=== PATIENT | female | born 1975 | race Caucasian/White ===

== ENCOUNTER 2017-04-03 15:51 | Observation (INO) ==
[2017-04-03 19:00] LABS: Basophils # 0.1 K/mcL (0.0-0.2); Basophils % 1.2 %; Eosinophils # 0.4 K/mcL (0.0-0.6); Hematocrit 42.4 % (35.3-44.9); Hemoglobin 13.5 g/dL (11.5-15.4); Immature Granulocytes % 1.4 % (0-4); Lymphocytes # 3.3 K/mcL (0.6-4.6); Lymphocytes % 27.4 %; Mean Corpuscular HGB Conc 31.8 g/dL (31.6-35.5); Mean Corpuscular Hemoglobin 26.8 pg (28.0-33.3); Mean Corpuscular Volume 84.3 fL (83.0-100.0); Mean Platelet Volume 10.1 fL (9.4-12.4); Monocytes # 0.7 K/mcL (0.0-1.3); Neutrophils # 7.4 K/mcL (1.6-8.9); Nucleated Red Blood Cells 0.2 /100 WBC (0); Platelet Count 332 K/mcL (140-400); Red Blood Count 5.03 M/mcL (3.82-4.97); Red Cell Distribution Width 13.1 % (11.5-14.5)
[2017-04-03 19:11] LABS: Ethanol < 10 mg/dL (0-10)
[2017-04-03 19:20] LABS: Alanine Aminotransferase 16 Units/L (7-52); Albumin 4.1 g/dL (3.5-5.7); Albumin/Globulin Ratio 1.5 (1.1-2.2); Alkaline Phosphatase 53 Units/L (34-104); Aspartate Amino Transferase 15 Units/L (13-39); BUN/Creatinine Ratio 18 (6-26); Bilirubin,Indirect 0.3 mg/dL (0.0-1.2); Bilirubin,Total 0.3 mg/dL (0.3-1.0); Blood Urea Nitrogen 13 mg/dL (6-20); Calcium 9.4 mg/dL (8.6-10.3); Carbon Dioxide 26 mEq/L (23-29); Chloride 100 mEq/L (98-107); Globulin 2.7 g/dL (2.4-3.5); Glucose 111 mg/dL (70-105); Osmolality,Calculated 285 (280-300); Sodium 137 mEq/L (136-145); Total Protein 6.8 g/dL (6.4-8.9); eGFR For Non-African Americans > 60 (> 60)
[2017-04-03 20:35] LABS: Amphetamine Screen,Urine Negative ng/mL (Cutoff=1000); Barbiturate Screen,Urine Negative ng/mL (Cutoff=200); Benzodiazepines Screen,Urine Negative ng/mL (Cutoff=200); Cannabinoid Screen,Urine Negative ng/mL (Cutoff = 50); Cocaine Screen,Urine Negative ng/mL (Cutoff= 300); Opiate Screen,Urine Negative ng/mL (Cutoff=300); Phencyclidine Screen,Urine Negative ng/mL (Cutoff=25)
[2017-04-03 20:38] LABS: Bilirubin,Urine Negative (Negative); Blood,Urine Negative (Negative); Clarity,Urine Clear (Clear); Color,Urine Yellow (Yellow); Glucose,Urine (UA) Normal (Normal); Ketones,Urine Negative (Negative); Leukocyte Esterase,Urine Negative (Negative); Nitrite,Urine Negative (Negative); Protein,Urine Negative (Neg-Trace); Specific Gravity,Urine 1.028 (1.010-1.025); Urobilinogen,Urine Normal (Normal)
[2017-04-03] MEDS ORDERED: *HR* HYDROcodone/Acet 5/325 mg TABLET PO ONE (21:12)
--- NOTE | 2017-04-03 21:15 | Emergency Department Note ---
Disposition Clinical Impression: Near syncope Hypertension Qualifiers: Hypertension type: essential hypertension Qualified Code(s): I10 - Essential ( primary) hypertension Disposition: Admitted As Inpatient Condition: Good Referrals: Krysten Olmos DO [Primary Care Provider] - Forms: ED Satisfaction Letter Time of Disposition: 22:05 General Adult HPI - General Chief complaint: ED Altered Mental Status Stated complaint: AMS Time Seen by Provider: 04/03/17 21:00 Source: patient, family Limitations: no limitations Nursing Notes Reviewed: Yes Vital Signs Reviewed: Yes - History of Present Illness HPI Narrative: 41-year-old female who comes in states she is not thinking straight has trouble initiating her speech last couple of days and getting her thoughts right. Also complains of a headache. She did have bedbug bites about a week ago was concerned that she may have picked up both infectious disease from them. She states over the last couple days she felt like she is going to pass out and caught herself with the mandaeism yesterday. Pt Subjective Complaint: Headache near syncope Onset (ago): day(s) (Several days) Location: head Radiation: non-radiation Pain Scale: 8 Quality: aching Consistency: intermittent Worsens with: nothing Associated symptoms: Reports: other (Near syncope) Treatments Prior to Arrival: none - Related Data Allergies Allergy/AdvReac Type Severity Reaction Status Date / Time No Known Allergies Allergy Verified 04/03/17 16:16 All systems ED: reviewed and negative except as stated. Constitutional: Denies: fever, chills, weakness, weight change Eyes: Denies: eye pain, eye discharge, vision change ENT ED: Denies: ear pain, throat pain, dental pain, hearing loss, epistaxis, congestion, dysphagia Cardiovascular: Denies: chest pain, palpitations, dyspnea on exertion, edema, syncope Respiratory: Denies: cough, dyspnea, wheezes, hemoptysis, stridor Gastrointestinal: Denies: abdominal pain, nausea, vomiting, diarrhea, constipation, hematemesis, melena, hematochezia Genitourinary: Denies: dysuria, frequency, hematuria, discharge Musculoskeletal: Denies: back pain, neck pain, arthralgia, myalgia Integumentary: Denies: rash, abrasion, lesions Neurological: Reports: headache. 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 - Social History Smoking Status: Never smoker Smokeless Tobacco Status: No Alcohol use: Reports: none Drug use: Reports: none Physical Exam - General Limitations: no limitations General appearance: alert, in no apparent distress - Head Head exam: atraumatic, normocephalic, normal inspection - Eye Eye exam: Present: normal appearance, PERRL, EOMI - ENT ENT exam: normal exam, normal oropharynx, mucous membranes moist - Neck Neck exam: Present: normal inspection, full ROM, trachea midline - Chest Chest inspection: Present: normal inspection, symmetric chest wall rise - Respiratory Respiratory exam: Present: normal lung sounds bilaterally - Cardiovascular Cardiovascular exam: Present: regular rate, normal rhythm, normal heart sounds - Abdominal Exam Abdominal exam: Present: soft, Non-Tender. Absent: tenderness, distention, guarding, rebound, rigidity - Extremities Exam Extremities exam: Present: normal inspection, full ROM. Absent: tenderness, pedal edema - Expanded Lower Extremity Exam Neurovascular/Tendon exam: Absent: motor deficit, sensory deficit, tendon deficit Gait: observed and normal - Back Exam Back exam: Present: normal inspection, full ROM. Absent: tenderness - Neurological Exam Neurological exam: Present: alert, oriented X3 - Psychiatric Psychiatric exam: Present: normal affect - Skin Skin exam: Present: warm, dry, intact, normal color Course - Reevaluation(s) Reevaluation #1: 41-year-old whose had symptoms of near-syncope felt like she is going to pass out says that does not seem that her brain is working right this been going on for 2-4 days. NIH stroke scale is 0 here. We will admit for evaluation. Time: 22:05 - Consultations Consultation #1: Discussed with Dr. Gerardo, admit Time: 22:11 Vital Signs Temperature 99.0 F 04/03/17 16:16 Pulse Rate 97 04/03/17 16:16 Respiratory Rate 16 04/03/17 16:16 Blood Pressure 179/112 04/03/17 16:16 O2 Sat by Pulse Oximetry 97 04/03/17 16:16 Temperature 99.0 F 04/03/17 16:16 Pulse Rate 89 04/03/17 21:11 Respiratory Rate 16 04/03/17 21:11 Blood Pressure 154/100 04/03/17 21:11 O2 Sat by Pulse Oximetry 100 04/03/17 21:11 Oxygen Delivery Oxygen Delivery Room Air Medical Decision Making - Lab Data Result diagrams: 04/03/17 18:19 04/03/17 18:19 Lab Results 04/03/17 04/03/17 04/03/17 Range/Units 18:19 18:19 18:19 WBC 12.1 H (4.3-11.1) K/mcL RBC 5.03 H (3.82-4.97) M/mcL Hgb 13.5 (11.5-15.4) g/dL Hct 42.4 (35.3-44.9) % MCV 84.3 (83.0-100.0) fL MCH 26.8 L (28.0-33.3) pg MCHC 31.8 (31.6-35.5) g/dL RDW 13.1 (11.5-14.5) % Plt Count 332 (140-400) K/mcL MPV 10.1 (9.4-12.4) fL Immature Gran % 1.4 (0-4) % Seg Neutrophils % 61.0 % Lymphocytes % 27.4 % Monocytes % 6.0 % Eosinophils % 3.0 % Basophils % 1.2 % Neutrophils # 7.4 (1.6-8.9) K/mcL Lymphocytes # 3.3 (0.6-4.6) K/mcL Monocytes # 0.7 (0.0-1.3) K/mcL Eosinophils # 0.4 (0.0-0.6) K/mcL Basophils # 0.1 (0.0-0.2) K/mcL Nucleated RBCs/100 WBC 0.2 H (0) /100 WBC Sodium 137 (136-145) mEq/L Potassium 4.0 (3.5-5.1) mEq/L Chloride 100 (98-107) mEq/L Carbon Dioxide 26 (23-29) mEq/L BUN 13 (6-20) mg/dL Creatinine 0.73 (0.60-1.20) mg/dL Est GFR ( Amer) > 60 (> 60) Est GFR (Non-Af Amer) > 60 (> 60) BUN/Creatinine Ratio 18 (6-26) Glucose 111 H (70-105) mg/dL Calculated Osmolality 285 (280-300) Calcium 9.4 (8.6-10.3) mg/dL Total Bilirubin 0.3 (0.3-1.0) mg/dL Direct Bilirubin 0.0 (0.0-0.2) mg/dL Indirect Bilirubin 0.3 (0.0-1.2) mg/dL AST 15 (13-39) Units/L ALT 16 (7-52) Units/L Alkaline Phosphatase 53 (34-104) Units/L Troponin I < 0.03 (< 0.04) ng/mL Serum Total Protein 6.8 (6.4-8.9) g/dL Albumin 4.1 (3.5-5.7) g/dL Globulin 2.7 (2.4-3.5) g/dL Albumin/Globulin Ratio 1.5 (1.1-2.2) Urine Color (Yellow) Urine Clarity (Clear) Urine pH (5.0-8.0) pH Units Ur Specific [place] (1.010-1.025) Urine Protein (Neg-Trace) mg/dL Urine Glucose (UA) (Normal) mg/dL Urine Ketones (Negative) mg/dL Urine Blood (Negative) Urine Nitrite (Negative) Urine Bilirubin (Negative) Urine Urobilinogen (Normal) mg/dL Ur Leukocyte Esterase (Negative) Ur Culture Indicated? (NO) Urine Opiates Screen (Ucvgdg=839) ng/mL Ur Barbiturates Screen (Kzeyqu=824) ng/mL Ur Phencyclidine Scrn (Cutoff=25) ng/mL Ur Amphetamines Screen (Uebcoh=4661) ng/mL U Benzodiazepines Scrn (Ktrmch=500) ng/mL Urine Cocaine Screen (Cutoff= 300) ng/mL U Marijuana (THC) Screen (Cutoff = 50) ng/mL Ethyl Alcohol < 10 (0-10) mg/dL 04/03/17 04/03/17 Range/Units 20:03 20:03 WBC (4.3-11.1) K/mcL RBC (3.82-4.97) M/mcL Hgb (11.5-15.4) g/dL Hct (35.3-44.9) % MCV (83.0-100.0) fL MCH (28.0-33.3) pg MCHC (31.6-35.5) g/dL RDW (11.5-14.5) % Plt Count (140-400) K/mcL MPV (9.4-12.4) fL Immature Gran % (0-4) % Seg Neutrophils % % Lymphocytes % % Monocytes % % Eosinophils % % Basophils % % Neutrophils # (1.6-8.9) K/mcL Lymphocytes # (0.6-4.6) K/mcL Monocytes # (0.0-1.3) K/mcL Eosinophils # (0.0-0.6) K/mcL Basophils # (0.0-0.2) K/mcL Nucleated RBCs/100 WBC (0) /100 WBC Sodium (136-145) mEq/L Potassium (3.5-5.1) mEq/L Chloride (98-107) mEq/L Carbon Dioxide (23-29) mEq/L BUN (6-20) mg/dL Creatinine (0.60-1.20) mg/dL Est GFR ( Amer) (> 60) Est GFR (Non-Af Amer) (> 60) BUN/Creatinine Ratio (6-26) Glucose (70-105) mg/dL Calculated Osmolality (280-300) Calcium (8.6-10.3) mg/dL Total Bilirubin (0.3-1.0) mg/dL Direct Bilirubin (0.0-0.2) mg/dL Indirect Bilirubin (0.0-1.2) mg/dL AST (13-39) Units/L ALT (7-52) Units/L Alkaline Phosphatase (34-104) Units/L Troponin I (< 0.04) ng/mL Serum Total Protein (6.4-8.9) g/dL Albumin (3.5-5.7) g/dL Globulin (2.4-3.5) g/dL Albumin/Globulin Ratio (1.1-2.2) Urine Color Yellow (Yellow) Urine Clarity Clear (Clear) Urine pH 6.0 (5.0-8.0) pH Units Ur Specific [place] 1.028 H (1.010-1.025) Urine Protein Negative (Neg-Trace) mg/dL Urine Glucose (UA) Normal (Normal) mg/dL Urine Ketones Negative (Negative) mg/dL Urine Blood Negative (Negative) Urine Nitrite Negative (Negative) Urine Bilirubin Negative (Negative) Urine Urobilinogen Normal (Normal) mg/dL Ur Leukocyte Esterase Negative (Negative) Ur Culture Indicated? NO (NO) Urine Opiates Screen Negative (Iczaqx=563) ng/mL Ur Barbiturates Screen Negative (Lbjuya=437) ng/mL Ur Phencyclidine Scrn Negative (Cutoff=25) ng/mL Ur Amphetamines Screen Negative (Bipdfy=9830) ng/mL U Benzodiazepines Scrn Negative (Kmjgrs=428) ng/mL Urine Cocaine Screen Negative (Cutoff= 300) ng/mL U Marijuana (THC) Screen Negative (Cutoff = 50) ng/mL Ethyl Alcohol (0-10) mg/dL NIH Stroke Scale - Level of Consciousness LOC: Alert - LOC Questions LOC Questions: Answers both correctly - LOC Commands LOC Commands: Performs both correctly - Best Gaze Best Gaze: Normal - Visual Visual: No visual loss - Facial Palsy Facial Palsy: Normal - Motor Arms Motor Arm-Left: No drift for 10 seconds Motor Arm-Right: No drift for 10 seconds - Motor Legs Motor Leg-Left: No drift for 5 seconds Motor Leg-Right: No drift for 5 seconds - Limb Ataxia Limb Ataxia: Normal, No Ataxia - Sensory Sensory: Normal - Best Language Best Language: No aphasia - Dysarthria Dysarthria: Normal - Extinction and Inattention Extinction and Inattention: Normal - NIHSS Total Score NIHSS Total Score: 0
[2017-04-04] MEDS ORDERED: Naloxone 0.4 MG/ML INJ IVP PRN (07:37)
[2017-04-04] MEDS ORDERED: Acetaminophen 325 MG TABLET PO PRN (07:37)
--- NOTE | 2017-04-04 08:19 | Internal Med History&Physical ---
Date of Encounter: 04/04/17 Time of Encounter: 08:09 Assessment and Plan (1) Near syncope Current visit: Yes Status: Acute Possible etiologies include hypertensive encephalopathy, complicated migraine, viral infection, other. CVA/TIA rule out since patient is having dysarthria and vision changes. - Will obtain 12 lead EKG - MRI since patient is having dysarthria with some vision complaints. - D-dimer to rule out VTE as patient is on OCP Sprintec. - Continue to monitor vital signs, obtain orthostatic vital signs. - Will consider Neurology consult if no improvement or etiology still unclear despite workup. (2) Leukocytosis Current visit: Yes Status: Acute Borderline elevated at 12,000. Possibly related to viral infection since patient does also complain of headache, fatigue, malaise. However, it is only borderline elevated. Since she is having fatigue and headache, will check flu swab. She is afebrile, no sick contacts at home. Qualifiers: Leukocytosis type: unspecified Qualified Code(s): D72.829 - Elevated white blood cell count, unspecified (3) Hypertension Current visit: Yes Status: Acute Resume atenolol. Monitor vital signs and check orthostatic vital signs. Qualifiers: Hypertension type: essential hypertension Qualified Code(s): I10 - Essential (primary) hypertension (4) Headache Current visit: Yes Status: Acute Qualifiers: Headache type: unspecified Headache chronicity pattern: unspecified pattern Intractability: not intractable Qualified Code(s): R51 - Headache (5) DVT prophylaxis Current visit: Yes Status: Acute lovenpx 40 mg sq Internal Medicine - H&P: HPI History of present illness: Ms. Hammer is a 41 year old female with history of hypertension presented for one week history of presyncopal episodes with fatigue, difficulty with speech, dizziness. Also complained of headache that lasts several hours at a time. She reports no gross vision changes but states that it is hard for her to look at cell phone screens. She denies phonophobia, nucal rigidity. She denies history of migraines. BP at home was elevated at 150/80s, she takes atenolol for hypertension as prescribed. She takes Sprintec and denies any leg swelling or tenderness. She denies palpitations, chest pain, SOB, n/v, change in gait, fevers/chills, diaphoresis, recent trauma, alcohol use, smoking, family history of sudden cardiac . Never happened in past. No EKG done but telemetry reviewed and showed sinus rhythm. CT head showed no acute process. Chest x-ray negative. BP on admission elevated 179/112 Urine drug screen negative, etoh negative. CMP/CBC unremarkable outside of leukocytosis borderline elevated. Past Med Surg Social Fam HX - Past Medical History Medical history: no medical history Psychiatric history: anxiety, depression - Social History Smoking Status: Never smoker Smokeless Tobacco Status: No Alcohol use: none Drug use: none - Family History Father Hx Family Endocrine Disorder: Yes (Diabetes) Internal Medicine - H&P: Meds Atenolol [Tenormin] 50 mg PO DAILY 04/03/17 [History] FLUoxetine HCl [Fluoxetine HCl] 40 mg PO DAILY 04/03/17 [History] Loratadine [Claritin] 10 mg PO DAILY 04/03/17 [History] Norgestimate-Ethinyl Estradiol [Sprintec 28 Day Tablet] 1 each PO DAILY [History] Triamcinolone Acet 0.1% OINT [Kenalog] 1 appl TP BID 04/03/17 [History] 3 Allergy/AdvReac Type Severity Reaction Status Date / Time No Known Allergies Allergy Verified 04/03/17 16:16 All Systems PM: A 10-system review of systems was performed and is negative for pertinent findings except as documented above in the HPI. - Constitutional Constitutional: fatigue, malaise, no chills, no fever(s), no night sweats, no weakness - EENT Eyes: no change in vision, no discharge, no pain, no seeing flashes, no spots in vision Ears: no ear discharge, no ear pain, no tinnitus Additional comments: No phonophobia Nose, mouth and throat: no dysphagia, no epistaxis, no nasal discharge, no neck pain, no sore throat - Cardiovascular Cardiovascular ROS IM: lightheadedness, no chest pain, no diaphoresis, no dyspnea, no palpitations, no syncope - Respiratory Respiratory: no cough, no dyspnea, no dyspnea on exertion, no wheezing, no excessive phlegm production - Gastrointestinal Gastrointestinal: no abdominal pain, no diarrhea, no hematemesis, no hematochezia, no melena, no nausea, no vomiting - Genitourinary Genitourinary: no change in urinary stream, no dysuria, no flank pain, no hematuria - Musculoskeletal Musculoskeletal ROS IM: no arthralgias, no numbness, no tingling - Integumentary Integumentary IM: no rash, no unusual bruising - Neurological Neurological ROS: abnormal speech, dizziness, no abnormal gait, no abnormal hearing, no confusion, no convulsions, no focal weakness, no loss of vision, no numbness, no tingling, no tremor(s) - Endocrine Endocrine IM: fatigue, no excessive sweating - Hematologic/Lymphatic Hematologic/Lymphatic: no easy bruising - Constitutional Vitals: Temp Pulse Resp BP Pulse Ox 98.4 F 84 14 133/84 94 04/04/17 07:31 04/04/17 07:31 04/04/17 07:31 04/04/17 07:31 04/04/17 07:31 - Head Head exam: Present: atraumatic, normocephalic - Eye Eye exam: Present: PERRL, conjuntiva pink, sclera anicteric Pupils: Present: PERRL - Neck Neck exam general surgery: Present: supple, trachea midline. Absent: lymphadenopathy - Respiratory Respiratory exam: Present: CTAB. Absent: accessory muscle use, rales, rhonchi, wheezes - Cardiovascular Cardiovascular exam: Present: RRR, +S1, +S2. Absent: diastolic murmur, gallop, rubs, systolic murmur - GI/Abdominal GI/Abdominal exam: Present: normal bowel sounds, soft, no peritoneal signs. Absent: distended, tenderness - Extremities Exam Extremities exam: Present: warm, radial pulses palpable and symmetrical. Absent : calf tenderness, cyanotic, pedal edema - Neurological Exam Neurological exam: Present: CN II-XII intact, oriented X3, no focal deficits. Absent: pronater drift, facial droop, speech deficit - Skin Skin exam: Present: dry, intact Internal Med - H&P Results - Labs CBC & Chem 7: 04/03/17 18:19 04/03/17 18:19
[2017-04-04 09:09] LABS: Chol/HDL Ratio 5.6 (0-4.9)
[2017-04-04] MEDS: FLUoxetine 20 MG CAPSULE PO SCH (11:18)
[2017-04-04] MEDS: Loratadine 10 MG TABLET PO SCH (11:20)
[2017-04-04] MEDS ORDERED: Prochlorperazine 10 MG/2 ML VIAL IVP STA (19:01)
[2017-04-04] MEDS ORDERED: Prochlorperazine 10 MG/2 ML VIAL IVP PRN ×2 (19:01→19:02)
--- NOTE | 2017-04-04 20:23 | Electrocardiograph Report ---
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
[2017-04-05] MEDS ORDERED: *HR* Enoxaparin 40 MG/0.4 ML SYRINGE SQ SCH (06:00)
[2017-04-05 07:37] LABS: Basophils # 0.1 K/mcL (0.0-0.2); Basophils % 0.7 %; Eosinophils # 0.1 K/mcL (0.0-0.6); Eosinophils % 0.9 %; Hematocrit 42.6 % (35.3-44.9); Hemoglobin 13.5 g/dL (11.5-15.4); Immature Granulocytes % 0.8 % (0-4); Lymphocytes # 2.2 K/mcL (0.6-4.6); Lymphocytes % 18.1 %; Mean Corpuscular HGB Conc 31.7 g/dL (31.6-35.5); Mean Corpuscular Hemoglobin 26.8 pg (28.0-33.3); Mean Corpuscular Volume 84.7 fL (83.0-100.0); Mean Platelet Volume 10.1 fL (9.4-12.4); Monocytes # 0.6 K/mcL (0.0-1.3); Monocytes % 4.6 %; Neutrophils # 8.9 K/mcL (1.6-8.9); Platelet Count 325 K/mcL (140-400); Red Blood Count 5.03 M/mcL (3.82-4.97); Red Cell Distribution Width 12.8 % (11.5-14.5); Segmented Neutrophils % 74.9 %
--- NOTE | 2017-04-05 07:52 | Internal Med Progress Note ---
Date of Encounter: 04/05/17 Time of Encounter: 07:44 - Assessment and plan (1) Near syncope Current Visit: Yes Status: Acute Assessment and plan: Possible etiologies include: complicated migraine, anxiety, hypertensive with BP ranging 118-187 / 71-127. CVA/TIA less likely, but she did complain of dysarthria and questionable vision changes. - Compazine 10 mg worked for headache but caused too much sedation. Will give 5 mg prn. - MRI normal - D-dimer within normal limits - EKG normal - Orthostatic VS normal Plan: - EEG this AM - Neurology consulted, recommendations appreciated. (2) Leukocytosis Current Visit: Yes Status: Acute Assessment and plan: Patient states this is chronic for her. Qualifiers: Leukocytosis type: unspecified Qualified Code(s): D72.829 - Elevated white blood cell count, unspecified (3) Hypertension Current Visit: Yes Status: Acute Assessment and plan: Will increase atenolol to 100 mg dose for today. I will monitor and see if she needs to keep 50 mg daily or 100 mg daily upon discharge. Qualifiers: Hypertension type: essential hypertension Qualified Code(s): I10 - Essential (primary) hypertension (4) Headache Current Visit: Yes Status: Acute Assessment and plan: Resolved with Compazine 10 mg but too sedated Likely migraine Neurology consulted, appreciate recs Qualifiers: Headache type: unspecified Headache chronicity pattern: unspecified pattern Intractability: not intractable Qualified Code(s): R51 - Headache (5) DVT prophylaxis Current Visit: Yes Status: Acute - Constitutional Vitals: Temp Pulse Resp BP Pulse Ox 98.4 F 114 18 158/105 94 04/05/17 07:24 04/05/17 07:24 04/05/17 07:24 04/05/17 07:24 04/05/17 07:24 - Head Head exam: Present: atraumatic, normocephalic - Eye Eye exam: Present: PERRL, conjuntiva pink, sclera anicteric Pupils: Present: PERRL - Neck Neck exam general surgery: Present: supple, trachea midline. Absent: lymphadenopathy - Respiratory Respiratory exam: Present: CTAB. Absent: accessory muscle use, rales, rhonchi, wheezes - Cardiovascular Cardiovascular exam: Present: RRR, +S1, +S2. Absent: diastolic murmur, gallop, rubs, systolic murmur - GI/Abdominal GI/Abdominal exam: Present: normal bowel sounds, soft, no peritoneal signs. Absent: distended, tenderness - Extremities Exam Extremities exam: Present: warm, radial pulses palpable and symmetrical. Absent : calf tenderness, cyanotic, pedal edema - Neurological Exam Neurological exam: Present: CN II-XII intact, oriented X3, no focal deficits. Absent: pronater drift, facial droop, speech deficit - Skin Skin exam: Present: dry, intact Internal Medicine: Result - Labs CBC & Chem 7: 04/05/17 07:03 04/03/17 18:19 Labs: Short CBC 04/05/17 Range/Units 07:03 WBC 11.9 H (4.3-11.1) K/mcL Hgb 13.5 (11.5-15.4) g/dL Hct 42.6 (35.3-44.9) % Plt Count 325 (140-400) K/mcL Neutrophils # 8.9 (1.6-8.9) K/mcL - ABG Interpretation ABG results: PT/INR, D-dimer D-Dimer 360 ng/mLFEU (0-500) 04/04/17 08:33 - Impressions Impressions Brain MRI 04/04/17 08:06 IMPRESSION: No evidence of acute intracranial abnormality or acute ischemia. Left maxillary sinus polyp versus mucous retention cyst. Mild mucosal thickening within the paranasal sinuses. D/ / 04/04/2017 12:07:56 Noah Garcia MD / clarice Interpreting Provider: Noah Garcia MD Consult Discharge Plan - Plan Referrals: Krysten Olmos DO [Primary Care Provider] -
[2017-04-05] MEDS ORDERED: Prochlorperazine 10 MG/2 ML VIAL IVP PRN (07:54)
[2017-04-05] MEDS: Loratadine 10 MG TABLET PO SCH (09:10)
[2017-04-05] MEDS: FLUoxetine 20 MG CAPSULE PO SCH (10:24)
--- NOTE | 2017-04-05 10:46 | Neurology - Consult Note ---
Date of Encounter: 04/05/17 Time of Encounter: 09:30 Assessment and Plan (1) Headache Current Visit: Yes Status: Acute 41-year-old female with history of headaches presented with headache, difficulty with word finding, thought process and mild slurred speech. No previous documented history of migraines. Symptoms persisted for 24 hours resolved with Compazine. Patient feels back to her normal self, neurologic exam was without any significant findings. Her symptoms may be associated with migraine-type headaches. Imaging studies including MRI of the brain were without significant findings. - At this time there is no need for further inpatient evaluation from neurology , would recommend follow-up with neurology for reevaluation the next 2-3 weeks in the outpatient setting. Qualifiers: Headache type: unspecified Headache chronicity pattern: unspecified pattern Intractability: not intractable Qualified Code(s): R51 - Headache History of Present Illness HPI: Ms. Hammer is a 41 year old female significant medical history of obesity, hypertension, depression presented to the emergency department on Monday with slurred speech, difficulty with thought process. She states that she started having headache on Monday while at work, difficulty with thoughts could not put words together and had difficulty with speech which was concerning to her. She presents to the emergency department for further evaluation. She denies any blurry vision, double vision, numbness tingling or weakness in any of her extremities, difficulty with walking, chest pain, palpitations, shortness of breath, abdominal pains, nausea vomiting diarrhea constipation. Of note she recently stayed in a hotel was bitten by bedbugs for which she had a bad allergic reaction and was put on prednisone and topical steroid cream with improvement in her bites which was one week prior to the onset of this event. She denies any previous events similar to her presenting symptoms. She does have a history of headaches which are usually treated with [id number] medications. She denies any significant family history of strokes, seizures, migraines. She denies traumatic events, change in medications other than the prednisone and topical steroid, does not use drugs, alcohol or smoker. Her symptoms continued until Monday at which time she was given Compazine which she said relieved the symptoms but made her feel like she was floating. TODAY' S EXAMINATION SHE FEELS BACK TO HER NORMAL SELF, NO DIFFICULTY WITH SPEECH, NO TROUBLE WITH THOUGHT PROCESS OR HEADACHES. Past Med Surg Social Fam HX - Past Medical History Medical history: no medical history Psychiatric history: anxiety, depression - Social History Smoking Status: Never smoker Smokeless Tobacco Status: No Alcohol use: none Drug use: none - Family History Father Hx Family Endocrine Disorder: Yes (Diabetes) Medications and Allergies Atenolol [Tenormin] 50 mg PO DAILY 04/03/17 [History] FLUoxetine HCl [Fluoxetine HCl] 40 mg PO DAILY 04/03/17 [History] Loratadine [Claritin] 10 mg PO DAILY 04/03/17 [History] Norgestimate-Ethinyl Estradiol [Sprintec 28 Day Tablet] 1 each PO DAILY [History] Triamcinolone Acet 0.1% OINT [Kenalog] 1 appl TP BID 04/03/17 [History] 3 Allergy/AdvReac Type Severity Reaction Status Date / Time No Known Allergies Allergy Verified 04/03/17 16:16 All Systems: The remainder of the systems were reviewed and are negative - Constitutional Constitutional ROS IM: headache(s), no chills, no fatigue, no fever(s), no frequent falls, no weakness - Nose, Mouth, Throat Nose, mouth and throat: no abnormal hearing, no dizziness, no dysphagia, no neck pain - Cardiovascular Cardiovascular ROS IM: as per HPI, no chest pain, no rapid heart rate, no slow heart rate, no syncope - Respiratory Respiratory IM: as per HPI, no dyspnea - Gastrointestinal Gastrointestinal: as per HPI, no abdominal pain, no nausea, no vomiting - Genitourinary Genitourinary ROS: no urinary frequency, no urinary hesitancy, no urinary urgency - Musculoskeletal Musculoskeletal ROS IM: no abnormal gait, no muscle cramps, no muscle weakness - Neurological Neurological ROS: abnormal speech, headache(s), other (Difficulty with word finding), no abnormal gait, no abnormal movements, no dizziness Physical Examination - Vital Signs Vital Signs: Initial Vital Signs Temp Pulse Resp BP Pulse Ox 99.0 F 97 16 179/112 97 04/03/17 16:16 04/03/17 16:16 04/03/17 16:16 04/03/17 16:16 04/03/17 16:16 - Neurologic Detailed motor examination: full strength in all major muscle groups Motor examination - right side: 5/5: deltoids, biceps, triceps, wrist flexion, wrist extension, bottom turning lathe turner, hip flexors, tibialis Anterior, quadriceps, toe extension (EHL), plantarflexion Motor examination - left side: 06/10: deltoids, biceps, triceps, wrist flexion, wrist extension, hip flexors, bottom turning lathe turner, quadriceps, tibialis Anterior, toe extension (EHL), plantarflexion Reflexes: Biceps: 2+, Triceps: 2+, Brachioradialis: 2+, Patella: 2+, Achilles: 2 + Mental Status Examination: awake, alert, oriented to person, oriented to place, oriented to time, follows commands appropriately, answers questions appropriately, no agnosia, no aphasia, no aproxia Cranial nerve examination: PERRL, EOMI, visual walker intact, corneal reflexes brisk symmetrically, sensory to face intact, mastication intact, no facial asymmetry is present, no dysarthria, hearing is intact symmetrically, soft palate elevates bilaterally upon phonation, gag reflex intact, flexes SCM and trapezius muscles symmetrically with full power, tongue protrudes midline, no atrophy or facial fasiculations present Cerebellar examination: no dysmetria, performs finger to nose and heel to wolfe symmetrically without ataxia, no gait ataxia, no truncal ataxia, no difficulty with rapid alternating movements Results - Laboratory Findings CBC and BMP: 04/05/17 07:03 04/03/17 18:19 Abnormal lab findings: Abnormal lab results WBC 11.9 K/mcL (4.3-11.1) H 04/05/17 07:03 RBC 5.03 M/mcL (3.82-4.97) H 04/05/17 07:03 MCH 26.8 pg (28.0-33.3) L 04/05/17 07:03 Nucleated RBCs/100 WBC 0.2 /100 WBC (0) H 04/03/17 18:19 Glucose 111 mg/dL (70-105) H 04/03/17 18:19 Triglycerides 289 mg/dL (< 150) H 04/04/17 08:33 Cholesterol 207 mg/dL (< 200) H 04/04/17 08:33 LDL Cholesterol, Calc 112 mg/dL (0-99) H 04/04/17 08:33 VLDL Cholesterol, Calc 58 mg/dL (< 31) H 04/04/17 08:33 HDL Cholesterol 37 mg/dL (40-59) L 04/04/17 08:33 Cholesterol/HDL Ratio 5.6 (0-4.9) H 04/04/17 08:33 Ur Specific [place] 1.028 (1.010-1.025) H 04/03/17 20:03 Consult Discharge Plan - Plan Referrals: Krysten Olmos DO [Primary Care Provider] -
[2017-04-05 11:27] VITALS: BP 135/85
[2017-04-05 12:34] LABS: BUN/Creatinine Ratio 17 (6-26); Blood Urea Nitrogen 11 mg/dL (6-20); Calcium 9.6 mg/dL (8.6-10.3); Carbon Dioxide 26 mEq/L (23-29); Chloride 102 mEq/L (98-107); Glucose 92 mg/dL (70-105); Osmolality,Calculated 281 (280-300); Potassium 4.9 mEq/L (3.5-5.1); Sodium 136 mEq/L (136-145); eGFR For Non-African Americans > 60 (> 60)
--- NOTE | 2017-04-05 13:05 | EEG/EMG/Oth Biometrics Report ---
EEG Procedure Report Date of procedure: 04/05/17 EEG Procedure: Routine EEG Procedure Note: This EEG was acquired with standard international 10-20 system with EKG recording. The background EEG activity was characterized by the presence of posterior dominant alpha rhythm with the best frequency up to 11 Hz. The background activity was reactive to eye openings. Sleep stages were characterized by the presence of background fragmentation, vertex waves, K complexes, and sleep spindles. There are no electrographic seizures identified during this tracing. There are no epileptiform discharges and focal slowing noted during this recording. Photic stimulation produced and hyperventilation produced no abnormalities. Hyperventilation efforts appeared adequate due to development of diffuse background slow during and immediately after HV challenge. EKG tracing showed no significant cardiac dysrhythmia. Impression: This is essentially a normal awake and asleep EEG. Clinical Correlation: Normal EEGs, however, do not exclude epilepsy. Clinical correlation is advised.
--- NOTE | 2017-04-05 13:55 | Discharge Summary ---
- NOTES TO OUTPATIENT PROVIDER Notes to Outpatient Provider: Follow-up with Neurology in 2-3 weeks. Orders not resulted at time of discharge: Pending orders 04/04/17 08:32 Rapid Influenza [Influenza A/B Antigen] [VIR] Routine Date of Encounter: 04/05/17 Time of Encounter: 13:51 - Discharge Diagnosis (1) Near syncope Priority: Primary Status: Acute (2) Headache Priority: Secondary Status: Acute Qualifiers: Headache type: unspecified Headache chronicity pattern: unspecified pattern Intractability: not intractable Qualified Code(s): R51 - Headache (3) Leukocytosis Priority: Secondary Status: Acute Qualifiers: Leukocytosis type: unspecified Qualified Code(s): D72.829 - Elevated white blood cell count, unspecified (4) Hypertension Priority: Secondary Status: Acute Qualifiers: Hypertension type: essential hypertension Qualified Code(s): I10 - Essential (primary) hypertension (5) DVT prophylaxis Priority: Secondary Status: Acute Hospital course: Ms. Hammer is a 41 year old female with history of hypertension presented for one week history of presyncopal episodes with fatigue, headache, difficulty with speech, dizziness. Also complained of headache that lasts several hours at a time. She reports no gross vision changes but states that it is hard for her to look at cell phone screens. She denies phonophobia, nucal rigidity. She denies history of migraines. BP at home was elevated at 150/80s, she takes atenolol for hypertension as prescribed. She takes Sprintec and denies any leg swelling or tenderness. She denies palpitations, chest pain, SOB, n/v, change in gait, fevers/chills, diaphoresis, recent trauma, alcohol use, smoking, family history of sudden cardiac . Never happened in past. EKG showed NSR. BP elevated 179/112 which increased with anxiety. Urine drug screen was negative. She had borderline leukocytosis otherwise unremarkable CBC/BMP, HCG negative. MRI done normal. D-dimer within normal limits so negative for PE, Orthostatic vital signs were normal. She had compazine dose which improved symptoms. Neurology consulted. Likely symptoms from atypical migraine versus vascular headache. She was discharged home with Imitrex with follow-up with Neurology as outpatient. - Time Spent with Patient Total time spent providing and/or coordinating discharge services: - Discharge Medications Home Medications: Atenolol [Tenormin] 50 mg PO DAILY 04/03/17 [History] FLUoxetine HCl [Fluoxetine HCl] 40 mg PO DAILY 04/03/17 [History] Loratadine [Claritin] 10 mg PO DAILY 04/03/17 [History] Norgestimate-Ethinyl Estradiol [Sprintec 28 Day Tablet] 1 each PO DAILY [History] Triamcinolone Acet 0.1% OINT [Kenalog] 1 appl TP BID 04/03/17 [History] SUMAtriptan succinate [Imitrex] 50 mg PO ONCE PRN #9 tablet 04/05/17 [Rx] Allergies/Adverse Reactions: 3 Allergy/AdvReac Type Severity Reaction Status Date / Time No Known Allergies Allergy Verified 04/03/17 16:16 Date of admission: 04/03/17 23:36 Primary care physician: Krysten Olmos Consults: 04/04/17 18:56 Consult to Neurology [CONS] Routine Consulting Provider: [facility] Reason for Consult: Presyncope, dysarthria, headache Call Completed: No 04/05/17 11:47 Consult to Interpret Exam [CONS] Routine Consulting Provider: Dolores Chow Consult to Interpret Exam: Interpret EEG Discharging clinician: Lev Huerta - Constitutional Vitals: Temp Pulse Resp BP Pulse Ox 98.5 F 94 18 135/85 94 04/05/17 11:19 04/05/17 11:19 04/05/17 11:19 04/05/17 11:19 04/05/17 11:19 - Head Head exam: Present: atraumatic, normocephalic - Eye Eye exam: Present: PERRL, conjuntiva pink, sclera anicteric Pupils: Present: PERRL - Neck Neck exam general surgery: Present: supple, trachea midline. Absent: lymphadenopathy - Respiratory Respiratory exam: Present: CTAB. Absent: accessory muscle use, rales, rhonchi, wheezes - Cardiovascular Cardiovascular exam: Present: RRR, +S1, +S2. Absent: diastolic murmur, gallop, rubs, systolic murmur - GI/Abdominal GI/Abdominal exam: Present: normal bowel sounds, soft, no peritoneal signs. Absent: distended, tenderness - Extremities Exam Extremities exam: Present: warm, radial pulses palpable and symmetrical. Absent : calf tenderness, cyanotic, pedal edema - Neurological Exam Neurological exam: Present: CN II-XII intact, oriented X3, no focal deficits. Absent: pronater drift, facial droop, speech deficit - Skin Skin exam: Present: dry, intact - Patient Status Disposition: Home, Self-Care Condition: Good Functional capacity at discharge: independent ambulation Overall status at discharge: patient is back to baseline - Discharge Instructions Follow Up With: Krysten Olmos DO [Primary Care Provider] - - Diet and Activity Activity: as per physical therapy
== END 2017-04-05 15:01 | disposition home or self-care (01) ==
LOC: EMEROO 15:51 → 2SOUTHHOLD 15:51
PROVIDERS: ADMIT Student in an Organized Health Care Education/Training Program; ATTEND Internal Medicine